=== PATIENT | female | born 1995 | race Caucasian/White ===

== ENCOUNTER 2019-01-23 20:44 | Emergency (ER) | payer OTHER ==
--- NOTE | 2019-01-23 21:24 | EDPHY ---
H & P Time Seen by Provider: 01/23/19 20:52 HPI/ROS: CHIEF COMPLAINT: Right calf pain HISTORY OF PRESENT ILLNESS: 23-year-old female who is 6 weeks postop from a ACL repair presents reporting cramping pain in her right calf which occurred today. Patient recently traveled to [place] ago. Following her surgery she was on aspirin for 10 days. She has been up, ambulatory, and doing well at PT. She does state this morning when she got out of bed she felt like her knee buckled. At that time she was not wearing a brace. She has an appointment tomorrow with Dr. Zamudio. She denies any fevers or chills, any erythema to the leg, any intercurrent trauma. No history of oral contraceptives or hormone replacement or smoking. No history of DVTs, PEs, or family history of hypercoagulable disorder. REVIEW OF SYSTEMS: A comprehensive 10 system review of systems was reviewed and is otherwise negative aside from elements mentioned in the history of present illness and medical decision making. 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 GENERAL APPEARANCE: Pleasant, alert, no obvious distress. FOCUSED EXAM OF right lower extremity: Well-healed surgical scars on the knee. No deformities. No swelling of the knee. No effusion. No erythema over the knee. No fullness of the calf. No swelling of the calf is appreciated. Patient indicates a crampy discomfort in the posterior popliteal fossa. Negative Homans. Neurovascular exam: Good capillary refill, normal motor exam, normal neurologic exam. Smoking Status: Never smoked Constitutional: Initial Vital Signs Temperature (C) 37.1 C 01/23/19 20:46 Heart Rate 84 01/23/19 20:46 Respiratory Rate 20 01/23/19 20:46 Blood Pressure 131/85 H 01/23/19 20:46 O2 Sat (%) 98 01/23/19 20:46 O2 Delivery Mode Room Air Allergies/Adverse Reactions: No Known Allergies Allergy (Unverified 01/23/19 20:49) Home Medications: Medication Instructions Recorded NK [No Known Home Meds] 01/23/19 Medical Decision Making - Diagnostics Imaging Results: Imaging Impressions Extremity Venous Study 01/23/19 20:58 Impression: No deep venous thrombosis right leg. Findings and recommendations discussed with Emergency Department physician, Connie Arias MD at 21:45 hour, 01/23/2019. Final report concurs with initial preliminary interpretation. ED Course/Re-evaluation: 23-year-old female 6 weeks postop from ACL repair with crampy pain in her right calf which is been worsening throughout the day. Ultrasound demonstrates no DVT. No signs of cellulitis, joint effusion, fracture, or hardware displacement. Follow-up tomorrow as previously scheduled Differential Diagnosis: Differential diagnoses for the patient's symptom complex was considered including but not limited to [DVT, joint effusion, electrolyte abnormality, Pina cyst . Departure - Departure Disposition: Home, Routine, Self-Care Clinical Impression: crampy calf pain Condition: Good Instructions: Leg Cramps (ED) Additional Instructions: Okay to use Tylenol if needed for pain. Stay well-hydrated. Follow-up with Dr. Zamudio as directed. Referrals: NONE *PRIMARY CARE P,. [Primary Care Provider] - As per Instructions Sami Zamudio MD [Medical Doctor] - As per Instructions
[2019-01-23 22:12] VITALS: BP 120/68
== END 2019-01-23 22:12 | disposition home or self-care (01) ==
DX: M79.661 Pain in right lower leg (principal); R25.2 Cramp and spasm